=== PATIENT | male | born 2000 | race Caucasian/White ===

== ENCOUNTER 2022-02-14 15:59 | Emergency (ER) | payer BC ==
[~2022-02-14] VITALS: Ht 170.2 cm; Wt 72.6 kg
[2022-02-14 16:07] VITALS: BP_SYST 113
--- NOTE | 2022-02-14 18:09 | NUR ---
Patient to ER bed 2 to gown for evaluation. Side rails up. Report given to .
--- NOTE | 2022-02-14 18:29 | NUR ---
Pt in bed #2 coming from home ambulatory with steady gait. Pt is A&Ox4. Skin intact. Pt c/o feeling weak, anxious, abdominal pain, constipation, diarrhea, and vomiting x1 week. States he feels that he had food poisoning and it is causing his anxiety to increase. VSS. EKG was done and given to Dr. Matos. Allergic to Amoxicillin. Has hx of Anxiety, IBS, and EOS. Bed in lowest position.
[2022-02-14] MEDS ORDERED: MAG HYDROX/AL HYDROX/SIMETH 30 ML, LIDOCAINE VISCOUS 2% 15ML (PO) 15 ML, DICYCLOMINE HC... PO ONE ×3 (18:30)
[2022-02-14] MEDS ORDERED: NACL 0.9% 1,000 ML IV ONE (18:30)
[2022-02-14] MEDS ORDERED: ONDANSETRON HCL 4 MG/2 ML VIAL IVP ONE ×2 (18:30)
[2022-02-14] MEDS ORDERED: LORazepam 2 MG/ML VIAL IVP ONE (18:30)
--- NOTE | 2022-02-14 19:30 | NUR ---
PT BIB [facility] AND FATHER. PT HAS COMPLAINT STOMACH PAIN AND ANXIETY. PT VS ARE WITHIN NORMAL LIMITS WITH EXCEPTION OF TACHYCARDIA. PT WAS ABLE TO AMBULATE WITH HELP TO THE RESTROOM. WILL CONTINUE TO MONITOR
[2022-02-14 20:00] LABS: BASOPHILS % (AUTO) 0.4 % (0.0-2.0); EOSINOPHILS # (AUTO) 0.1 K/uL (0.0-0.4); EOSINOPHILS % (AUTO) 0.8 % (0.0-4.0); HEMATOCRIT 42.6 % (36-54); HEMOGLOBIN 14.9 g/dL (14.0-18.0); LYMPHOCYTES # (AUTO) 2.1 K/uL (1.0-5.5); LYMPHOCYTES % (AUTO) 17.6 % (20.5-51.5); MEAN CORPUSCULAR HEMOGLOBIN 28 pg (27-31); MEAN CORPUSCULAR HGB CONC 35 % (32-36); MEAN CORPUSCULAR VOLUME 80 fL (79.0-98.0); MONOCYTES # (AUTO) 0.8 K/uL (0.0-1.0); MONOCYTES % (AUTO) 6.7 % (1.7-9.3); NEUTROPHILS # (AUTO) 8.8 K/uL (1.8-7.7); NEUTROPHILS % (AUTO) 74.5 % (40.0-70.0); PLATELET COUNT (AUTO) 343 K/uL (130-430); RED BLOOD CELL COUNT(AUTO) 5.31 MIL/uL (4.2-6.2); RED CELL DISTRIBUTION WIDTH 13.2 % (9.0-15.0); WHITE BLOOD COUNT (AUTO) 11.8 K/uL (4.8-10.8)
[2022-02-14 20:03] LABS: CALCIUM 9.3 mg/dL (8.4-11.0); POTASSIUM 4.1 mmol/L (3.5-5.1)
[2022-02-14 20:15] LABS: TOTAL BILIRUBIN 0.5 mg/dL (0.0-1.0)
--- NOTE | 2022-02-14 21:02 | NUR ---
Urine: Dark orange, clear, sent to lab.
[2022-02-14 21:10] LABS: BILIRUBIN,URINE NEGATIVE (NEGATIVE); CLARITY/URINE CLEAR (CLEAR); COLOR,URINE YELLOW (YELLOW); GLUCOSE,URINE NEGATIVE (NEGATIVE); KETONES,URINE 3+ (NEGATIVE); LEUKOCYTE ESTERASE ,URINE NEGATIVE (NEGATIVE); NITRITE, URINE NEGATIVE (NEGATIVE); PH,URINE 6.5 (5.0-8.0); PROTEIN URINE NEGATIVE (NEGATIVE); UROBILINOGEN,URINE 0.2 (0.2-1.0)
[2022-02-14 21:19] LABS: BLOOD, URINE TRACE (NEGATIVE)
[2022-02-14 21:20] LABS: BACTERIA,URINE None Seen /HPF (None Seen); MUCUS,URINE None Seen /LPF (None Seen); RBC,URINE 0-3 /HPF (0-3); WBC,URINE NONE SEEN /HPF (0-3)
[2022-02-14] MEDS ORDERED: ONDA-8 TL (22:49)
[2022-02-14] MEDS ORDERED: PRO40 PO (22:49)
[2022-02-14 23:23] VITALS: BP_SYST 114
--- NOTE | 2022-02-14 23:26 | NUR ---
Patient given written and verbal discharge instructions and verbalizes understanding. ER MD DR COREAS discussed with patient the results and treatment provided. Patient in stable condition. ID arm band removed. IV catheter removed intact and dressing applied, no active bleeding. Rx of ONDANSETRON, PANTOPRAZOLE given. Patient educated on pain management and to follow up with PMD. Pain Scale . Opportunity for questions provided and answered. Medication side effect fact sheet provided.
== END 2022-02-14 23:26 | disposition home or self-care (01) ==
LOC: SED 15:59
DX: K52.9 Noninfective gastroenteritis and colitis, unspecified (principal); F41.9 Anxiety disorder, unspecified; R42 Dizziness and giddiness; R55 Syncope and collapse; Z88.1 Allergy status to other antibiotic agents; Z79.899 Other long term (current) drug therapy
CPT/HCPCS: 99285; 96374; 96361; 96375; 80053; 81000; 83690; 85025; 84484; 36415; 93005; J2001; J2060; J2405; J7030

== ENCOUNTER 2022-03-30 17:28 | Emergency (ER) | payer BC ==
[~2022-03-30] VITALS: Ht 170.2 cm; Wt 88.5 kg
[2022-03-30 17:28] VITALS: BP_SYST 88
[~2022-03-30 17:28] MED LIST: ONDA-8 TL; PRO40 PO
--- NOTE | 2022-03-30 17:40 | NUR ---
PT STATES THAT HE WENT TO [facility] AND WAS TOLD TO COME HERE FOR MEDICAL CLEARANCE TO BE ADMITTED TO [facility] FOR PSYCHIATRIC TREATMENT
--- NOTE | 2022-03-30 18:11 | NUR ---
DR SINGH AT BEDSIDE MED CLEARANCE FOR [facility]
[2022-03-30 18:18] LABS: BASOPHILS # (AUTO) 0.1 K/uL (0.0-0.2); BASOPHILS % (AUTO) 0.7 % (0.0-2.0); EOSINOPHILS # (AUTO) 0.3 K/uL (0.0-0.4); EOSINOPHILS % (AUTO) 3.1 % (0.0-4.0); LYMPHOCYTES % (AUTO) 19.8 % (20.5-51.5); MEAN CORPUSCULAR VOLUME 81 fL (79.0-98.0); MONOCYTES # (AUTO) 0.8 K/uL (0.0-1.0); MONOCYTES % (AUTO) 7.9 % (1.7-9.3); NEUTROPHILS # (AUTO) 7.1 K/uL (1.8-7.7); NEUTROPHILS % (AUTO) 68.5 % (40.0-70.0); PLATELET COUNT (AUTO) 307 K/uL (130-430); RED BLOOD CELL COUNT(AUTO) 5.32 MIL/uL (4.2-6.2); RED CELL DISTRIBUTION WIDTH 12.7 % (9.0-15.0); WHITE BLOOD COUNT (AUTO) 10.3 K/uL (4.8-10.8)
[2022-03-30 18:49] LABS: BARBITURATE, URINE NEGATIVE (NEG <=200); METHAMPHETAMINES SCREEN,URINE NEGATIVE (NEG <=500); URINE AMPHETAMINE NEGATIVE (NEG <=500); URINE METHADONE NEGATIVE (NEG <=200)
[2022-03-30 18:50] LABS: BENZODIAZEPINE, URINE POSITIVE (NEG <=150); CANNABINOID, URINE POSITIVE (NEG <=50); COCAINE, URINE NEGATIVE (NEG <=150); OPIATE, URINE NEGATIVE (NEG <=100); PHENCYCLIDINE SCREEN,URINE NEGATIVE (NEG <=25); UR TRICYCLIC ANTIDEPRESSANTS NEGATIVE (NEG <=300); URINE OXYCODONE SCREEN NEGATIVE (NEG <=100); URINE PROPOXYPHENE SCREEN NEGATIVE (NEG <=300)
--- NOTE | 2022-03-30 19:03 | NUR ---
REPORT TO NELL
[2022-03-30 19:08] LABS: ANION GAP 10 (5-15); CALCIUM 9.9 mg/dL (8.4-11.0); CHLORIDE 102 mmol/L (98-107); CREATININE 1.23 mg/dL (0.55-1.30); GLUCOSE 88 mg/dL (70-99); POTASSIUM 3.9 mmol/L (3.5-5.1); SODIUM SERUM 139 mmol/L (136-145); UREA NITROGEN, BLOOD 17 mg/dL (8-21)
[2022-03-30 19:15] LABS: ALANINE AMINOTRANSFERASE 24 U/L (12-78); ALBUMIN 4.3 g/dL (3.4-4.8); ASPARTATE AMINOTRANSFERASE 22 U/L (10-37); TOTAL BILIRUBIN 0.5 mg/dL (0.0-1.0)
[2022-03-30 19:24] LABS: GFR AFRICAN AMERICAN 94 mL/min (>90)
[2022-03-30 19:25] LABS: ACETAMINOPHEN < 1 ug/mL (1-30); ALCOHOL, BLOOD < 3 mg/dL (<10)
--- NOTE | 2022-03-30 19:25 | NUR ---
Received report from CHRISTIE Chen; assuming care of patient at this time.
--- NOTE | 2022-03-30 19:27 | NUR ---
First contact with patient at this time. Patient presents to ED from home with c/o dehydration, nausea, and anxiety at this time. Patient reports pain 0/10 at this time.Patient reports he is here for medical clearance for behavioral health admission for anxiety. Patient denies suicidal ideations, homicidal ideations, auditory hallucinations, and/or visual hallucinations at this time. Patient is accompanied by significant other (girlfriend) at this time. Patient states "I'm just here because I've been having a lot of anxiety lately and I went to [facility] for my anxiety, but they said I needed to be medically cleared because I feel dehydrated and I feel nauseous." Patient A/Ox4, VSS, ambulatory, resp even and unlabored. Nad noted at this time. ER MD Starr notified of patient's condition at this time.
[2022-03-30] MEDS ORDERED: NACL 0.9% 1,000 ML IV ONE (19:30)
--- NOTE | 2022-03-30 20:45 | NUR ---
Patient resting comfortably in bed with side rails raised. Patient's significant other (Girlfriend) at bedside. Nad noted at this time.
[2022-03-30 21:00] VITALS: BP_SYST 105
--- NOTE | 2022-03-30 21:00 | NUR ---
Patient given written and verbal discharge instructions and verbalizes understanding. ER MD discussed with patient the results and treatment provided. Patient in stable condition. ID arm band removed. IV catheter removed intact and dressing applied, no active bleeding. Patient educated on pain management and to follow up with PMD. Pain Scale 0/10. Opportunity for questions provided and answered. Patient As/Ox4, VSS, ambulatory, resp even and unlabored. Patient in stable condition upon discharge and accompanied by significant other (girlfriend). Nad noted at this time.
== END 2022-03-30 21:00 | disposition home or self-care (01) ==
LOC: SED 17:28
DX: F32.9 Major depressive disorder, single episode, unspecified (principal); F41.9 Anxiety disorder, unspecified; Z88.1 Allergy status to other antibiotic agents; Z79.899 Other long term (current) drug therapy
CPT/HCPCS: 99283; 96360; 80307; 80053; 82550; 85025; 36415; G0482; J7030; G0480; G0481